=== PATIENT | female | born 1980 | race Two or more races ===

== ENCOUNTER → 2023-08-31 | Emergency (ER) | payer OTHER ==
[~2023-08-31] VITALS: Ht 167.6 cm; Wt 60.8 kg
[~2023-08-31] MED LIST: DELSYM30 MG/5 M1 PO; NASAL MIST126 ML
== END | disposition home or self-care (01) ==
LOC: ER 09:34
DX: J06.9 Acute upper respiratory infection, unspecified (principal)

== ENCOUNTER → 2024-02-20 | Outpatient (CLI) | payer OTHER | END | disposition home or self-care (01) | LOC: RAD 13:48 | PROVIDERS: ATTEND Orthopaedic Surgery Adult Reconstructive Orthopaedic Surgery | DX: M75.51 Bursitis of right shoulder (principal) ==

== ENCOUNTER 2024-02-25 14:32 | Outpatient (CLI) | payer OTHER | END 2024-02-25 14:38 | disposition home or self-care (01) | LOC: MRI 14:32 | PROVIDERS: ATTEND Orthopaedic Surgery | DX: M75.31 Calcific tendinitis of right shoulder (principal) | CPT/HCPCS: 73221 ==

== ENCOUNTER → 2025-02-18 09:16 | Outpatient (CLI) | payer OTHER | END | disposition home or self-care (01) | LOC: MAMO-SONO 09:16 | PROVIDERS: ATTEND Obstetrics & Gynecology | DX: N60.11 Diffuse cystic mastopathy of right breast (principal); N60.12 Diffuse cystic mastopathy of left breast; Z12.31 Encounter for screening mammogram for malignant neoplasm of breast; M54.2 Cervicalgia; M54.6 Pain in thoracic spine; M54.59 Other low back pain ==